=== PATIENT | female | born 1945 | race Caucasian/White ===

== ENCOUNTER → 2020-01-06 13:57 | Outpatient (CLI) | payer MEDICARE, SELFPAY ==
--- NOTE | ~2020-01-06 | MM_ITS ---
EXAMINATION: MM screening mine BI w ester HISTORY: Screening mammogram TECHNIQUE: Craniocaudal and mediolateral oblique 3-D tomosynthesis images were obtained and synthetic 2-D images were generated. CAD analysis was submitted and interpreted. COMPARISON: 12/31/2018 diagnostic right digital mammogram and limited right breast ultrasound To, 11/17/2017, 11/01/2016, 09/18/2015 bilateral digital screening mammogram examinations BREAST PARENCHYMAL COMPOSITION: The breasts are heterogeneously dense, which may obscure small masses .. FINDINGS: There is no evidence of suspicious mass, calcification, or architectural distortion to sugg est malignancy in either breast. There has been no suspicious interval change. IMPRESSION: 1. No mammographic evidence of malignancy. 2. Recommend routine screening mammography in one year. BI-RADS Category 1: Negative Reviewed, dictated and finalized at location A.
--- NOTE | ~2020-01-06 | DEXA_ITS ---
Bone Density Report Name: Trinity Martinez Age: 74 Sex: Female Ethnicity: White Date of : 1945 Indication: postmenopausal; screening for osteoporosis; height loss; hysterectomy; Referring Provider: MELODY, ADAM Hutson Study: Bone densitometry was performed. Exam Date: January 06, 2020 Accession number: [id number] Bone Density: Region BMD T-score Z-score Classification AP Spine (L1-L4) 1.024 -0.2 2.2 Normal Femoral Neck (Left) 0.755 -0.9 1.3 Normal Total Hip (Left) 0.830 -0.9 0.9 Normal Femoral Neck (Right) 0.705 -1.3 0.8 Osteopenia Total Hip (Right) 0.789 -1.3 0.6 Osteopenia Total Hip Mean 0.810 -1.1 0.8 Osteopenia World Health Organization criteria for BMD impression classify patients as: Normal (T-score at or above -1.0), Osteopenia (T-score between -1.0 and -2.5), or Osteoporosis (T-score at or below -2.5). 10-year Fracture Risk(1): Major Osteoporotic Fracture 9.1% Hip Fracture 1.8% Reported Risk Factors: [place] (), Neck BMD=0.705, BMI=19.5 (1) FRAX(R) Version 3.08. Fracture probability calculated for an untreated patient. Fracture probability may be lower if the patient has received treatment. Previous Exams: Region Exam Age BMD T-score BMD Change BMD Change Date g/cm2 vs Baseline vs Previous AP Spine(L1-L4) 01/06/2020 74 1.024 -0.2 -0.207 -0.075* 05/07/2012 66 1.099 0.5 -0.132 -0.017 01/28/2009 63 1.116 0.6 -0.114 -0.060* 01/17/2005 59 1.176 1.2 -0.054 -0.054 10/03/2002 57 1.231 1.7 Total Hip(Left) 01/06/2020 74 0.830 -0.9 -0.200 -0.124* 05/07/2012 66 0.954 0.1 -0.076 -0.006 01/28/2009 63 0.960 0.1 -0.071 -0.145* 01/17/2005 59 1.105 1.3 0.074 0.074 10/03/2002 57 1.030 0.7 Total Hip(Right) 01/06/2020 74 0.789 -1.3 -0.218 -0.126* 05/07/2012 66 0.915 -0.2 -0.092 0.028* 01/28/2009 63 0.887 -0.5 -0.120 -0.128* 01/17/2005 59 1.015 0.6 0.008 0.008 10/03/2002 57 1.007 0.5 *Denotes significance at 95% confidence level, LSC for AP Spine = 0.022 g/cm2, LSC for Total Hip = 0.027 g/cm2 Clinical Information Provided by Patient: Has the following medical conditions: Hysterectomy Patient maximum height was 66.5 Menopause Age: 51 Onset of menses at age 12 Number of children 2
== END ==
PROVIDERS: Referring Provider Obstetrics & Gynecology; Visit Provider Physician Assistant
DX: Z12.31 Encounter for screening mammogram for malignant neoplasm of breast (principal); M85.89 Other specified disorders of bone density and structure, multiple sites; Z78.0 Asymptomatic menopausal state
CPT/HCPCS: 77063; 77067; 77080